=== PATIENT | female | born 1950 | race African-American/Black ===

== ENCOUNTER 2020-12-31 07:34 | Inpatient (IN) ==
[2020-12-31] MEDS ORDERED: SODIUM CHLORIDE 0.9% 1,000 ML IV STA (07:58)
[2020-12-31 08:28] LABS: Basophils # 0.1 10*3/uL (0.0-0.2); Basophils % 0.5 % (0.0-0.8); Eosinophils # 1.7 10*3/uL (0.0-0.87); Eosinophils % 13.3 % (0.00-10.9); Hematocrit 35.8 VOL% (35.7-47.0); Hemoglobin 11.2 GM/DL (12.0-16.0); Immature Granulocytes % 0.4 %; Immature Granulocytes Absolute 0.05 #; Lymphocytes # 2.4 10*3/uL (1.4-4.0); Lymphocytes % 19.1 % (21.3-54.2); Mean Corpuscular HGB Conc 31.3 GM/DL (32-36); Mean Platelet Volume 9.5 FL (9.6-12.0); Monocytes % 6.5 % (1.7-12.7); Neutrophils % 60.2 % (38.7-73.9); Platelet Count 293 T/CUMM (130-400); Red Blood Count 3.89 MC/CUMM (3.8-5.5); Red Cell Distribution Width 13.3 % (9.3-17.3); White Blood Count 12.4 T/CUMM (4-12)
[2020-12-31 08:30] LABS: Bilirubin,Urine Negative (Negative); Blood, Urine Large mg/dL (Negative); Glucose,Urine (UA) 50 mg/dL (Negative); Ketones,Urine 5 mg/dL (Negative); Nitrite,Urine Negative (Negative); Protein,Urine 100 MG/DL; RBC,Urine 82168 /HPF (0-4); Urine Appearance CLOUDY (Clear); Urine Color BLUE (Yellow); Urine Specific Gravity 1.014 (1.001-1.035); Urine Urobilinogen < 2.0 EU/DL (0.2-1.0); WBC,Urine 20 /HPF (0-6)
[2020-12-31 08:45] LABS: Alanine Aminotransferase 16 U/L (13-56); Albumin 3.1 G/DL (3.4-5.0); Alkaline Phosphatase 126 U/L (45-117); Aspartate Amino Transferase 15 U/L (0-37); Bilirubin,Total < 0.39 MG/DL (0.2-1.0); Blood Urea Nitrogen 19 MG/DL (7-18); Carbon Dioxide 27 MMOL/L (21-32); Estimated Glom Filtration Rate 38 ML/MIN; Glucose 176 MG/DL (74-106); Osmolality,Calculated 286.3 MOS/KG (273-304); Sodium 141 MMOL/L (136-145); Total Protein 7.5 G/DL (6.4-8.2)
[2020-12-31 08:48] LABS: Eosinophils 16 % (0-10); Hypochromasia 1+; Lymphocytes 21 % (20-55); Microcytosis 1+; Platelet Estimate Adequate; Segmented Neutrophils 60 % (50-85); Total Cells Counted 100
[2020-12-31] MEDS ORDERED: ONDANSETRON 4 MG/2 ML VIAL ONE (11:03)
[2020-12-31] MEDS ORDERED: HYDROmorphone 2 MG/1 ML VIAL ONE (11:05)
[2020-12-31] MEDS ORDERED: HYDROmorphone 2 MG/1 ML VIAL IV STA (11:09)
[2020-12-31] MEDS ORDERED: ONDANSETRON 4 MG/2 ML VIAL IV STA (11:09)
[2020-12-31] MEDS ORDERED: hydrALAZINE 20 MG/1 ML VIAL IV PRN (13:33)
[2020-12-31] MEDS ORDERED: DEXTROSE 50% 25 GM/50 ML VIAL IV PRN (13:33)
[2020-12-31] MEDS ORDERED: GLUCAGON 1 MG VIAL IM PRN (13:33)
[2020-12-31] MEDS ORDERED: DOCUSATE SODIUM 100 MG CAPSULE PO PRN (13:33)
[2020-12-31] MEDS ORDERED: FLUTICASONE 50 MCG NASAL SPRAY 16 GM BOTTLE BOTH NARES PRN (13:50)
[2020-12-31] MEDS ORDERED: ALBUTEROL 2.5 MG/3 ML NEB RESP TX PRN (15:00)
[2020-12-31 16:09] LABS: Risk Ratio 2.15; Thyroid Stimulating Hormone 1.53 uIU/ml (0.358-3.74); VLDL CHOLESTEROL 11.8 MG/DL
[2020-12-31] MEDS: LACTATED RINGERS 1,000 ML IV SCH (16:15)
[2020-12-31 16:18] LABS: Hematocrit 37.2 VOL% (35.7-47.0); Hemoglobin 12.1 GM/DL (12.0-16.0)
[2020-12-31] MEDS: INSULIN LISPRO 100 UNIT/ML SUBCUT SCH ×2 (16:18→20:38)
[2020-12-31 16:39] LABS: PT Patient Result 10.6 SECS (9.8-11.9); Partial Thromboplastin Time 25.4 SECS (23.9-33.8)
[2020-12-31 19:48] LABS: Hematocrit 34.4 VOL% (35.7-47.0); Hemoglobin 11.5 GM/DL (12.0-16.0)
[2020-12-31] MEDS: MULTIVITAMIN (CENTRUM) TABLET PO SCH (20:35)
[2020-12-31] MEDS: ASPIRIN EC 81 MG TABLET PO SCH (20:35)
[2020-12-31] MEDS: amLODIPine 10 MG TABLET PO SCH (20:35)
[2020-12-31] MEDS: ATORVASTATIN 20 MG TABLET PO SCH (20:35)
[2020-12-31] MEDS: CETIRIZINE 10 MG TABLET PO SCH (20:35)
[2020-12-31] MEDS: ACETAMINOPHEN 325 MG TABLET PO PRN (22:59)
[2021-01-01 02:25] LABS: Basophils # 0.1 10*3/uL (0.0-0.2); Basophils % 0.3 % (0.0-0.8); Eosinophils # 1.4 10*3/uL (0.0-0.87); Eosinophils % 8.2 % (0.00-10.9); Hematocrit 32.8 VOL% (35.7-47.0); Immature Granulocytes % 0.4 %; Immature Granulocytes Absolute 0.07 #; Lymphocytes # 2.3 10*3/uL (1.4-4.0); Lymphocytes % 13.3 % (21.3-54.2); Mean Corpuscular HGB Conc 33.5 GM/DL (32-36); Mean Corpuscular Volume 88.2 FL (87-102); Mean Platelet Volume 9.5 FL (9.6-12.0); Monocytes % 7.1 % (1.7-12.7); Neutrophils % 70.7 % (38.7-73.9); Platelet Count 275 T/CUMM (130-400); Red Blood Count 3.72 MC/CUMM (3.8-5.5); Red Cell Distribution Width 13.2 % (9.3-17.3); White Blood Count 17.1 T/CUMM (4-12)
[2021-01-01 02:45] LABS: Calcium 9.1 MG/DL (8.5-10.1); Osmolality,Calculated 281.4 MOS/KG (273-304); Potassium 3.7 MMOL/L (3.5-5.1)
[2021-01-01] MEDS: LACTATED RINGERS 1,000 ML IV SCH ×2 (04:29→09:10)
[2021-01-01] MEDS: ONDANSETRON 4 MG/2 ML VIAL IV PRN ×2 (04:29→09:11)
[2021-01-01] MEDS: PROMETHAZINE 25 MG/1 ML VIAL IM PRN ×2 (06:34→17:27)
[2021-01-01] MEDS ORDERED: INSULIN GLARGINE 100 UNIT/ML SUBCUT SCH (09:00)
[2021-01-01] MEDS: PANTOPRAZOLE 40 MG TABLET PO SCH (09:11)
[2021-01-01] MEDS: INSULIN LISPRO 100 UNIT/ML SUBCUT SCH ×4 (09:13→21:17)
[2021-01-01] MEDS: SODIUM CHLORIDE 0.9% 1,000 ML IV SCH (09:23)
[2021-01-01] MEDS: LEVOFLOXACIN INJ 750 MG in PREMIX 1 EACH IV SCH (09:34)
[2021-01-01] MEDS: ACETYLCYSTEINE 600 MG CAPSULE PO SCH ×2 (11:14→21:15)
[2021-01-01] MEDS: ASPIRIN EC 81 MG TABLET PO SCH (21:15)
[2021-01-01] MEDS: ATORVASTATIN 20 MG TABLET PO SCH (21:15)
[2021-01-01] MEDS: MULTIVITAMIN (CENTRUM) TABLET PO SCH (21:15)
[2021-01-01] MEDS: CETIRIZINE 10 MG TABLET PO SCH (21:15)
[2021-01-01] MEDS: amLODIPine 10 MG TABLET PO SCH (21:15)
[2021-01-01] MEDS: BUDESONIDE/FORMOTEROL 160-4.5 INHALER 6 GM INH SCH (21:22)
[2021-01-02 06:55] LABS: Basophils % 0.2 % (0.0-0.8); Eosinophils # 0.2 10*3/uL (0.0-0.87); Eosinophils % 0.9 % (0.00-10.9); Hematocrit 32.5 VOL% (35.7-47.0); Hemoglobin 10.5 GM/DL (12.0-16.0); Immature Granulocytes % 0.4 %; Immature Granulocytes Absolute 0.09 #; Lymphocytes # 2.2 10*3/uL (1.4-4.0); Lymphocytes % 10.3 % (21.3-54.2); Mean Corpuscular HGB Conc 32.3 GM/DL (32-36); Mean Corpuscular Volume 89.8 FL (87-102); Mean Platelet Volume 9.9 FL (9.6-12.0); Monocytes % 8.9 % (1.7-12.7); Neutrophils % 79.3 % (38.7-73.9); Platelet Count 263 T/CUMM (130-400); Red Blood Count 3.62 MC/CUMM (3.8-5.5); Red Cell Distribution Width 13.2 % (9.3-17.3); White Blood Count 21.4 T/CUMM (4-12)
[2021-01-02 07:06] LABS: Calcium 8.6 MG/DL (8.5-10.1); Osmolality,Calculated 285.3 MOS/KG (273-304); Potassium 3.8 MMOL/L (3.5-5.1)
[2021-01-02 07:29] LABS: Anisocytosis 1+; Band Neutrophils 6 % (0-10); Eosinophils 1 % (0-10); Lymphocytes 11 % (20-55); Platelet Estimate Normal; Segmented Neutrophils 70 % (50-85); Total Cells Counted 100
[2021-01-02] MEDS: PANTOPRAZOLE 40 MG TABLET PO SCH (08:29)
[2021-01-02] MEDS: ACETYLCYSTEINE 600 MG CAPSULE PO SCH ×2 (08:29→20:59)
[2021-01-02] MEDS: INSULIN LISPRO 100 UNIT/ML SUBCUT SCH ×4 (08:29→20:57)
[2021-01-02] MEDS: INSULIN GLARGINE 100 UNIT/ML SUBCUT SCH (08:30)
[2021-01-02] MEDS: BUDESONIDE/FORMOTEROL 160-4.5 INHALER 6 GM INH SCH ×2 (09:12→20:58)
[2021-01-02] MEDS ORDERED: SEVOFLURANE 1 UNIT/15 MINUTE INH ONE ×5 (09:47→12:18)
[2021-01-02] MEDS ORDERED: LIDOCAINE 2% 5 ML VIAL ONE (09:47)
[2021-01-02] MEDS ORDERED: ONDANSETRON 4 MG/2 ML VIAL ONE (09:47)
[2021-01-02] MEDS ORDERED: ROCURONIUM 50 MG/5 ML VIAL IV ONE (09:47)
[2021-01-02] MEDS ORDERED: propofoL 200 MG/20 ML VIAL IV ONE (09:47)
[2021-01-02] MEDS ORDERED: fentaNYL 100 MCG/2 ML VIAL ONE ×3 (09:47→13:20)
[2021-01-02] MEDS ORDERED: MIDAZOLAM 2 MG/2 ML VIAL ONE (09:48)
[2021-01-02] MEDS ORDERED: LACTATED RINGERS 1,000 ML IV SCH (10:30)
[2021-01-02] MEDS ORDERED: ceFAZolin 1,000 MG VIAL ONE (11:10)
[2021-01-02] MEDS ORDERED: PHENYLEPHRINE 1 MG/10 ML SYRINGE IV ONE (11:44)
[2021-01-02] MEDS ORDERED: PHENYLEPHRINE DRIP 20 MG/250 ML PREMIX IV ONE (12:11)
[2021-01-02] MEDS ORDERED: ACETAMINOPHEN 1,000 MG/100 ML VIAL IV ONE (12:17)
[2021-01-02] MEDS: LACTATED RINGERS 1,000 ML IV SCH (12:45)
[2021-01-02] MEDS ORDERED: SUGAMMADEX 200 MG/2 ML VIAL IV ONE ×2 (13:25→13:49)
[2021-01-02 13:35] LABS: Bilirubin,Urine Negative (Negative); Blood, Urine Large mg/dL (Negative); Glucose,Urine (UA) Negative (Negative); Ketones,Urine Negative (Negative); Nitrite,Urine Negative (Negative); Protein,Urine 100 MG/DL; RBC,Urine 1779 /HPF (0-4); Urine Appearance CLEAR (Clear); Urine Color Yellow (Yellow); Urine Specific Gravity 1.006 (1.001-1.035); Urine Urobilinogen < 2.0 EU/DL (0.2-1.0); WBC,Urine 20 /HPF (0-6)
[2021-01-02] MEDS ORDERED: ROPIVACAINE 0.5% 30 ML VIAL ONE (13:35)
[2021-01-02] MEDS ORDERED: HYDROmorphone 2 MG/1 ML VIAL IV PRN (13:49)
[2021-01-02 14:18] LABS: Basophils # 0.1 10*3/uL (0.0-0.2); Basophils % 0.3 % (0.0-0.8); Eosinophils # 0.3 10*3/uL (0.0-0.87); Eosinophils % 1.8 % (0.00-10.9); Hematocrit 33.4 VOL% (35.7-47.0); Hemoglobin 10.6 GM/DL (12.0-16.0); Immature Granulocytes % 0.9 %; Immature Granulocytes Absolute 0.16 #; Lymphocytes % 16.2 % (21.3-54.2); Mean Corpuscular HGB Conc 31.7 GM/DL (32-36); Mean Corpuscular Volume 91.8 FL (87-102); Mean Platelet Volume 9.5 FL (9.6-12.0); Monocytes % 8.1 % (1.7-12.7); Neutrophils % 72.7 % (38.7-73.9); Platelet Count 267 T/CUMM (130-400); Red Blood Count 3.64 MC/CUMM (3.8-5.5); Red Cell Distribution Width 13.3 % (9.3-17.3); White Blood Count 18.6 T/CUMM (4-12)
[2021-01-02 14:35] LABS: Calcium 8.4 MG/DL (8.5-10.1); Osmolality,Calculated 284.4 MOS/KG (273-304); Potassium 3.9 MMOL/L (3.5-5.1)
[2021-01-02] MEDS: SODIUM CHLORIDE 0.9% 1,000 ML IV SCH ×4 (16:12→23:31)
[2021-01-02] MEDS: ONDANSETRON 4 MG/2 ML VIAL IV PRN (17:14)
[2021-01-02] MEDS: oxyCODONE/ACETAMINOPHEN 5-325 MG TABLET PO PRN (19:15)
[2021-01-02] MEDS: amLODIPine 10 MG TABLET PO SCH (20:56)
[2021-01-02] MEDS: ALVIMOPAN 12 MG CAPSULE PO SCH (20:56)
[2021-01-02] MEDS: ATORVASTATIN 20 MG TABLET PO SCH (20:56)
[2021-01-02] MEDS: ASPIRIN EC 81 MG TABLET PO SCH (20:59)
[2021-01-02] MEDS: MULTIVITAMIN (CENTRUM) TABLET PO SCH (20:59)
[2021-01-02] MEDS: CETIRIZINE 10 MG TABLET PO SCH (21:00)
[2021-01-03] MEDS: oxyCODONE/ACETAMINOPHEN 5-325 MG TABLET PO PRN (01:16)
[2021-01-03 05:22] LABS: Basophils % 0.2 % (0.0-0.8); Eosinophils # 0.5 10*3/uL (0.0-0.87); Eosinophils % 2.8 % (0.00-10.9); Hematocrit 30.3 VOL% (35.7-47.0); Hemoglobin 9.7 GM/DL (12.0-16.0); Immature Granulocytes % 0.5 %; Immature Granulocytes Absolute 0.08 #; Lymphocytes # 1.8 10*3/uL (1.4-4.0); Lymphocytes % 10.4 % (21.3-54.2); Mean Platelet Volume 9.7 FL (9.6-12.0); Monocytes % 7.5 % (1.7-12.7); Neutrophils % 78.6 % (38.7-73.9); Platelet Count 239 T/CUMM (130-400); Red Blood Count 3.33 MC/CUMM (3.8-5.5); Red Cell Distribution Width 13.3 % (9.3-17.3); White Blood Count 17.3 T/CUMM (4-12)
[2021-01-03 05:39] LABS: Calcium 8.3 MG/DL (8.5-10.1); Osmolality,Calculated 283.3 MOS/KG (273-304); Potassium 3.7 MMOL/L (3.5-5.1)
[2021-01-03] MEDS: INSULIN LISPRO 100 UNIT/ML SUBCUT SCH ×4 (07:19→23:24)
[2021-01-03] MEDS: PANTOPRAZOLE 40 MG TABLET PO SCH (09:04)
[2021-01-03] MEDS: ALVIMOPAN 12 MG CAPSULE PO SCH ×2 (09:04→21:45)
[2021-01-03] MEDS: INSULIN GLARGINE 100 UNIT/ML SUBCUT SCH (09:05)
[2021-01-03] MEDS: BUDESONIDE/FORMOTEROL 160-4.5 INHALER 6 GM INH SCH ×2 (09:06→21:45)
[2021-01-03] MEDS: LEVOFLOXACIN INJ 750 MG in PREMIX 1 EACH IV SCH (09:06)
[2021-01-03] MEDS: LACTATED RINGERS 1,000 ML IV SCH ×3 (11:39→23:26)
[2021-01-03] MEDS: ACETAMINOPHEN 325 MG TABLET PO PRN (15:22)
[2021-01-03] MEDS: SODIUM CHLORIDE 0.9% 1,000 ML IV SCH (16:55)
[2021-01-03] MEDS: amLODIPine 10 MG TABLET PO SCH (21:45)
[2021-01-03] MEDS: ATORVASTATIN 20 MG TABLET PO SCH (21:45)
[2021-01-03] MEDS: MULTIVITAMIN (CENTRUM) TABLET PO SCH (23:24)
[2021-01-03] MEDS: ASPIRIN EC 81 MG TABLET PO SCH (23:24)
[2021-01-03] MEDS: CETIRIZINE 10 MG TABLET PO SCH (23:25)
[2021-01-04] MEDS: LACTATED RINGERS 1,000 ML IV SCH ×2 (06:35→13:28)
[2021-01-04 06:46] LABS: Basophils % 0.2 % (0.0-0.8); Eosinophils # 0.6 10*3/uL (0.0-0.87); Eosinophils % 3.4 % (0.00-10.9); Hemoglobin 9.7 GM/DL (12.0-16.0); Immature Granulocytes % 0.7 %; Immature Granulocytes Absolute 0.12 #; Lymphocytes # 1.6 10*3/uL (1.4-4.0); Lymphocytes % 9.6 % (21.3-54.2); Mean Corpuscular HGB Conc 32.3 GM/DL (32-36); Mean Corpuscular Volume 90.1 FL (87-102); Mean Platelet Volume 9.8 FL (9.6-12.0); Monocytes % 8.3 % (1.7-12.7); Neutrophils % 77.8 % (38.7-73.9); Platelet Count 252 T/CUMM (130-400); Red Blood Count 3.33 MC/CUMM (3.8-5.5); Red Cell Distribution Width 13.1 % (9.3-17.3); White Blood Count 16.8 T/CUMM (4-12)
[2021-01-04 07:25] LABS: Albumin 2.4 G/DL (3.4-5.0); Bilirubin,Total 0.8 MG/DL (0.2-1.0); Calcium 8.7 MG/DL (8.5-10.1); Osmolality,Calculated 283.4 MOS/KG (273-304); Potassium 3.7 MMOL/L (3.5-5.1); Total Protein 6.6 G/DL (6.4-8.2)
[2021-01-04] MEDS: ALVIMOPAN 12 MG CAPSULE PO SCH ×2 (09:03→20:46)
[2021-01-04] MEDS: PANTOPRAZOLE 40 MG TABLET PO SCH (09:03)
[2021-01-04] MEDS: ACETAMINOPHEN 325 MG TABLET PO PRN (09:03)
[2021-01-04] MEDS: INSULIN GLARGINE 100 UNIT/ML SUBCUT SCH (09:04)
[2021-01-04] MEDS: INSULIN LISPRO 100 UNIT/ML SUBCUT SCH ×4 (09:04→20:45)
[2021-01-04] MEDS: BUDESONIDE/FORMOTEROL 160-4.5 INHALER 6 GM INH SCH ×2 (09:05→20:46)
[2021-01-04] MEDS ORDERED: LACTATED RINGERS 1,000 ML IV SCH (12:30)
[2021-01-04] MEDS: ASPIRIN EC 81 MG TABLET PO SCH (20:46)
[2021-01-04] MEDS: MULTIVITAMIN (CENTRUM) TABLET PO SCH (20:46)
[2021-01-04] MEDS: ATORVASTATIN 20 MG TABLET PO SCH (20:46)
[2021-01-04] MEDS: CETIRIZINE 10 MG TABLET PO SCH (20:46)
[2021-01-04] MEDS: amLODIPine 10 MG TABLET PO SCH (20:46)
[2021-01-05 05:49] LABS: Basophils # 0.1 10*3/uL (0.0-0.2); Basophils % 0.3 % (0.0-0.8); Hematocrit 30.2 VOL% (35.7-47.0); Hemoglobin 9.7 GM/DL (12.0-16.0); Immature Granulocytes % 0.9 %; Immature Granulocytes Absolute 0.13 #; Lymphocytes # 2.1 10*3/uL (1.4-4.0); Lymphocytes % 14.4 % (21.3-54.2); Mean Corpuscular HGB Conc 32.1 GM/DL (32-36); Mean Corpuscular Volume 90.4 FL (87-102); Mean Platelet Volume 10.6 FL (9.6-12.0); Monocytes % 8.4 % (1.7-12.7); Platelet Count 226 T/CUMM (130-400); Red Blood Count 3.34 MC/CUMM (3.8-5.5); Red Cell Distribution Width 13.2 % (9.3-17.3); White Blood Count 14.7 T/CUMM (4-12)
[2021-01-05 06:11] LABS: Osmolality,Calculated 283.3 MOS/KG (273-304); Potassium 3.6 MMOL/L (3.5-5.1)
[2021-01-05 06:15] LABS: Albumin 2.3 G/DL (3.4-5.0); Bilirubin,Total 0.9 MG/DL (0.2-1.0); Calcium 8.7 MG/DL (8.5-10.1); Potassium 3.6 MMOL/L (3.5-5.1); Total Protein 6.6 G/DL (6.4-8.2)
[2021-01-05] MEDS: LEVOFLOXACIN INJ 750 MG in PREMIX 1 EACH IV SCH (09:01)
[2021-01-05] MEDS: ALVIMOPAN 12 MG CAPSULE PO SCH (09:02)
[2021-01-05] MEDS: INSULIN GLARGINE 100 UNIT/ML SUBCUT SCH (09:02)
[2021-01-05] MEDS: PANTOPRAZOLE 40 MG TABLET PO SCH (09:03)
[2021-01-05] MEDS: BUDESONIDE/FORMOTEROL 160-4.5 INHALER 6 GM INH SCH (09:03)
[2021-01-05] MEDS ORDERED: GLUCAGON 1 MG VIAL IM PRN (10:52)
[2021-01-05] MEDS ORDERED: DEXTROSE 50% 25 GM/50 ML VIAL IV PRN (10:52)
[2021-01-05 13:00] VITALS: BP 136/74
== END 2021-01-05 13:40 | disposition home health service (06) | DRG 657 ==
LOC: N.ED 07:34 → N.EDINP 07:34 → SUATTDRO 13:36 → N.4E 13:46 → SUATTDRO 01-02 15:23
PROVIDERS: ADMIT Internal Medicine; ATTEND Internal Medicine Geriatric Medicine